=== PATIENT | male | born 1975 | race Caucasian/White ===

== ENCOUNTER 2018-09-25 20:25 | Inpatient (IN) | payer MEDICAID ==
[~2018-09-25] VITALS: Ht 180.3 cm; Wt 88.0 kg
[~2018-09-25 20:25] MED LIST: ASPI-41 PO; CARV-50 PO; DOCU100C40 PO; FURO40TA4 PO; HYDR-3972 PO; LISI-604 PO; PANT-47 PO; POTA10CA44 PO; TEMA15CA PO
--- NOTE | 2018-09-25 21:26 | NUR ---
SHIVERING EPISODE THURSDAY MORNING SITTING ON RIGHT LEG BENT UP. STARTED HAVING PAIN THEREAFTER. PT STATES, I JUST CAME FROM [facility] AFTER BEING ADMITTED FOR 2 DAYS. PT VERY UPSET. STATES, I JUST WALKED OUT. I PULLED MY IV AND LEFT BECAUSE THEY WERE NOT ACKNOWLEDGING THE PAIN I WAS HAVING IN MY RIGHT CALF DOWN TO MY FOOT.
[2018-09-25] MEDS ORDERED: vancomycin/NS 1 GM ADD-VANTAGE 250 ML IV ONE (22:05)
[2018-09-25] MEDS ORDERED: aspirin 81mg tab.chew PO ONE (22:05)
[2018-09-25] MEDS ORDERED: HYDROmorphone 1 mg/ml syringe IV ONE (22:05)
--- NOTE | 2018-09-25 22:08 | NUR ---
TO XRAY VIA WHEELCHAIR
--- NOTE | 2018-09-25 22:12 | NUR ---
BACK FROM XRAY
[2018-09-25 23:03] LABS: BASOPHILS % (AUTO) 0.2 % (0-1); EOSINOPHILS # (AUTO) 0.5 X10'3 (0-0.9); EOSINOPHILS % (AUTO) 3.2 % (0-6); HEMATOCRIT 27.9 % (42.0-52.0); HEMOGLOBIN 9.2 g/dl (14.0-17.9); LYMPHOCYTES # (AUTO) 0.9 X10'3 (1.1-4.8); LYMPHOCYTES % (AUTO) 6.1 % (21-51); MEAN CORPUSCULAR HEMOGLOBIN 30.5 PG (27.0-31.0); MEAN CORPUSCULAR VOLUME 92.3 FL (78-98); MEAN PLATELET VOLUME 7.9 FL (7.4-10.4); MONOCYTES # (AUTO) 1.1 X10'3 (0-0.9); MONOCYTES % (AUTO) 7.5 % (2-12); NEUTROPHILS # (AUTO) 11.8 X10'3 (1.8-7.7); PLATELET COUNT 251 X10'3 (140-440); RED BLOOD COUNT 3.02 X10'6 (4.70-6.10); RED CELL DISTRIBUTION WIDTH 15.4 % (11.5-14.5); WHITE BLOOD COUNT 14.2 X10'3 (4.5-11.0)
[2018-09-25] MEDS ORDERED: diltiazem 5mg/ml 5ml inj. IV ONE ×2 (23:05)
[2018-09-25] MEDS ORDERED: magnesium hydroxide 30ml (MOM) UD suspension PO PRN (23:15)
[2018-09-25] MEDS ORDERED: mag hydrox/Alum hydrox/simeth 30ml oral suspension PO PRN (23:15)
[2018-09-25] MEDS ORDERED: HYDROcodone/acetaminophen 5mg/325mg tablet PO PRN (23:15)
[2018-09-25] MEDS ORDERED: ondansetron/PF 4mg/2ml inj IV PRN (23:15)
[2018-09-25] MEDS ORDERED: acetaminophen 325mg tablet PO PRN ×2 (23:15)
[2018-09-25 23:17] LABS: ALANINE AMINOTRANSFERASE 19 U/L (12-78); ALBUMIN 2.6 G/DL (3.4-5.0); ALBUMIN/GLOBULIN RATIO 0.6 (1.1-1.5); ALKALINE PHOSPHATASE 115 IU/L (46-116); ANION GAP 11 (8-16); ASPARTATE AMINO TRANSFERASE 15 U/L (10-37); BILIRUBIN,TOTAL 0.8 MG/DL (0.1-1.0); BLOOD UREA NITROGEN 31 MG/DL (7-18); BUN/CREATININE RATIO 16.5 (5.4-32.0); CALCIUM 8.4 MG/DL (8.5-10.1); CHLORIDE 100 MMOL/L (99-107); CREATININE 1.88 MG/DL (0.60-1.10); GLUCOSE 107 MG/DL (70-104); POTASSIUM 4.8 MMOL/L (3.5-5.1); SODIUM 133 MMOL/L (135-145); TOTAL CARBON DIOXIDE 22.2 MMOL/L (24-32); TOTAL PROTEIN 7.2 G/DL (6.4-8.2); eGFR 39 ML/MIN
[2018-09-25] MEDS ORDERED: digoxin 250mcg/ml 2ml ampule IV ONE (23:25)
--- NOTE | 2018-09-25 23:25 | NUR ---
SBP 93. MD NOTIFIED. HOLD DILTIAZEM. ADMINISTER DIGOXIN
[2018-09-25 23:27] LABS: INR 1.1 INR; PARTIAL THROMBOPLASTIN TIME 29 SECONDS (22-32); PROTHROMBIN TIME 11.1 SECONDS (9.0-12.0)
[2018-09-26] MEDS ORDERED: piperacillin/tazo 4.5gm/100ml 100 ML IV SCH
[2018-09-26 00:14] LABS: CLARITY,URINE CLEAR (Clear); COLOR,URINE AMBER (Yellow); GLUCOSE, URINE NEGATIVE (Neg); KETONES,URINE NEGATIVE (Neg); LEUKOCYTE ESTERASE ,URINE NEGATIVE (Neg); NITRITES, URINE NEGATIVE (Neg); OCCULT BLOOD,URINE TRACE-LYSED (Neg); PH,URINE 5.5 (4.8-8.0); PROTEIN,URINE 30 mg/dl (Neg)
[2018-09-26 00:15] LABS: UA COLLECTION TYPE URINAL
[2018-09-26 00:33] LABS: BACTERIA,URINE NONE SEEN /HPF (Neg); FINE GRANULAR CAST 0-3 /LPF (NEGATIVE); MUCUS STRANDS FEW /LPF (Neg); RBC,URINE 0-2 /HPF (0-2); SQUAMOUS EPITHELIAL CELL,UR FEW /LPF (FEW); WBC,URINE 0-4 /HPF (0-4)
[2018-09-26 03:13] VITALS: BP 108/75
[2018-09-26 03:13] LABS: URINE AMPHETAMINE SCREEN NEGATIVE (Neg); URINE BARBITUATE SCREEN NEGATIVE (Neg); URINE BENZODIAZEPINES SCREEN NEGATIVE (Neg); URINE CANNABINOID SCREEN POSITIVE (Neg); URINE COCAINE SCREEN NEGATIVE (Neg); URINE METHADONE SCREEN NEGATIVE (Neg); URINE OPIATE SCREEN POSITIVE (Neg); URINE PHENCYCLIDINE SCREEN NEGATIVE (Neg)
--- NOTE | 2018-09-26 05:17 | NUR ---
PT STATED FRUSTRATION WITH CONTINUING PAIN IN RIGHT KNEE, AND SUGGESTED HE MIGHT LEAVE [facility] AND GO TO [facility] FOR ASSESSMENT AND TREATMENT AT [facility] ER. HE STATED THAT HE PLANNED NOT TO TELL THEM ABOUT HIS ENDOCARDITIS IN ORDER FOR THEM FOCUS ON THE PAIN IN HIS LEG. PT WAS INFORMED OF THE IMPORTANCE OF CONTINUING HIS ANTIBIOTICS FOR ENDOCARDITIS AND ALSO THAT HE HAS A VASCULAR STUDY ORDERED AND WILL BE COMPLETED WHEN THE CLIENT OPERATIONS MANAGER ARRIVES IN THE AM. IT WAS RECOMMENDED PT CALL [facility] AND FIND OUT ABOUT THE POSSIBILITY OF HAVING A VASCULAR STUDY BEFORE ONE IS AVAILABLE IN [facility] ER. CHARGE NURSE NOTIFIED.
[2018-09-26] MEDS ORDERED: pantoprazole 40mg Tablet.DR PO SCH (07:30)
[2018-09-26] MEDS ORDERED: docusate sod 100mg capsule PO SCH (08:00)
[2018-09-26] MEDS ORDERED: aspirin 325mg tablet, delayed-release (Ecotrin) PO SCH (08:00)
[2018-09-26] MEDS ORDERED: furosemide 40mg tablet PO SCH (08:00)
[2018-09-26] MEDS ORDERED: carVEDilol 12.5mg tablet PO SCH (08:00)
[2018-09-26] MEDS ORDERED: vancomycin/NS 1 GM ADD-VANTAGE 250 ML IV SCH (08:00)
[2018-09-26] MEDS ORDERED: potassium chloride 10mEq CAPSULE.SA PO SCH (08:00)
[2018-09-26] MEDS ORDERED: lisinopril 5mg tablet PO SCH (08:00)
[2018-09-26] MEDS ORDERED: Melatonin 3mg tablet PO SCH (21:00)
== END 2018-09-26 05:32 | disposition left against medical advice (07) | DRG 200 ==
LOC: ER 20:26 → ED HOLD 23:15
PROVIDERS: ADMIT Hospitalist; ATTEND Hospitalist
DX: I38 Endocarditis, valve unspecified (principal); N17.9 Acute kidney failure, unspecified; I42.9 Cardiomyopathy, unspecified; I48.91 Unspecified atrial fibrillation; D64.9 Anemia, unspecified; E11.9 Type 2 diabetes mellitus without complications; I10 Essential (primary) hypertension; J44.9 Chronic obstructive pulmonary disease, unspecified; F15.90 Other stimulant use, unspecified, uncomplicated; F12.90 Cannabis use, unspecified, uncomplicated; Z87.891 Personal history of nicotine dependence; Z56.0 Unemployment, unspecified; Z83.3 Family history of diabetes mellitus; Z82.5 Family history of asthma and other chronic lower respiratory diseases; Z95.1 Presence of aortocoronary bypass graft; Z95.0 Presence of cardiac pacemaker; Z95.2 Presence of prosthetic heart valve; Z91.19 Patient's noncompliance with other medical treatment and regimen
CPT/HCPCS: 36415; 71045; 80053; 80305; 81001; 81003; 83605; 83735; 84145; 85025; 85610; 85730; 87040; 93005; 93306; 96365; 96375; 99291; G0378; J1160; J1170; J2543; J3370; J3490

== ENCOUNTER 2020-08-20 13:33 | Inpatient (IN) | payer MEDICAID ==
[~2020-08-20] VITALS: Ht 180.3 cm; Wt 110.0 kg
[2020-08-20 14:12] LABS: BASOPHILS # (AUTO) 0.1 X10'3 (0-0.2); BASOPHILS % (AUTO) 0.9 % (0-1); EOSINOPHILS # (AUTO) 0.3 X10'3 (0-0.9); EOSINOPHILS % (AUTO) 2.5 % (0-6); HEMATOCRIT 42.1 % (42.0-52.0); HEMOGLOBIN 14.3 g/dl (14.0-17.9); LYMPHOCYTES # (AUTO) 0.9 X10'3 (1.1-4.8); LYMPHOCYTES % (AUTO) 8.5 % (21-51); MEAN CORPUSCULAR HEMOGLOBIN 33.3 PG (27.0-31.0); MEAN CORPUSCULAR VOLUME 97.7 FL (78-98); MEAN PLATELET VOLUME 8.8 FL (7.4-10.4); MONOCYTES # (AUTO) 0.9 X10'3 (0-0.9); MONOCYTES % (AUTO) 8.2 % (2-12); NEUTROPHILS # (AUTO) 8.5 X10'3 (1.8-7.7); NEUTROPHILS % (AUTO) 79.9 % (42-75); PLATELET COUNT 175 X10'3 (140-440); RED BLOOD COUNT 4.31 X10'6 (4.70-6.10); RED CELL DISTRIBUTION WIDTH 13.3 % (11.5-14.5); WHITE BLOOD COUNT 10.7 X10'3 (4.5-11.0)
[2020-08-20 14:21] LABS: ALANINE AMINOTRANSFERASE 44 U/L (12-78); ALBUMIN 3.7 G/DL (3.4-5.0); ANION GAP 6 (8-16); ASPARTATE AMINO TRANSFERASE 28 U/L (10-37); BLOOD UREA NITROGEN 35 MG/DL (7-18); BUN/CREATININE RATIO 16.3 (5.4-32.0); CHLORIDE 105 MMOL/L (99-107); CREATININE 2.15 MG/DL (0.60-1.10); GLUCOSE 177 MG/DL (70-104); POTASSIUM 3.6 MMOL/L (3.5-5.1); SODIUM 139 MMOL/L (135-145); eGFR 33 ML/MIN
[2020-08-20 14:39] LABS: ALKALINE PHOSPHATASE 110 IU/L (46-116); BILIRUBIN,TOTAL 0.9 MG/DL (0.1-1.0); CALCIUM 8.8 MG/DL (8.5-10.1); TOTAL PROTEIN 7.5 G/DL (6.4-8.2)
[2020-08-20] MEDS ORDERED: iohexol 350MG/ML 100ml bottle IV ONE (14:46)
--- NOTE | 2020-08-20 15:10 | NUR ---
UPDATED DR. DOWD ON PTS VSS, PT CURRENT HR 134, NO NEW ORDERS.
[2020-08-20] MEDS ORDERED: normal saline 1000ML IV soln IVB ONE (15:15)
[2020-08-20] MEDS ORDERED: diltiazem 5mg/ml 5ml inj. IV ONE (16:50)
[2020-08-20] MEDS ORDERED: POTA8CAP20 PO (17:23)
[2020-08-20] MEDS ORDERED: ATOR40TA72 PO (17:23)
[2020-08-20] MEDS ORDERED: CARV25TA2 PO (17:23)
[2020-08-20] MEDS ORDERED: FURO40TA4 PO (17:23)
[2020-08-20] MEDS ORDERED: HYDR-4069 PO (17:25)
[2020-08-20] MEDS ORDERED: morphine 2 MG/ML inj. syringe IV PRN ×2 (17:30)
[2020-08-20] MEDS ORDERED: acetaminophen 325mg tablet PO PRN ×2 (17:30)
[2020-08-20] MEDS ORDERED: mag hydrox/Alum hydrox/simeth 30ml oral suspension PO PRN (17:30)
[2020-08-20] MEDS ORDERED: HYDROcodone/acetaminophen 5mg/325mg tablet PO PRN (17:30)
[2020-08-20] MEDS ORDERED: magnesium hydroxide 30ml (MOM) UD suspension PO PRN (17:30)
[2020-08-20] MEDS ORDERED: ondansetron/PF 4mg/2ml inj IV PRN (17:30)
[2020-08-20] MEDS ORDERED: HYDROcodone/acetaminophen 10/325mg tab PO PRN (17:30)
[2020-08-20] MEDS: diltiazem 30mg tablet PO SCH (19:44)
[2020-08-20] MEDS: furosemide 40mg/4ml inj IV SCH (19:45)
[2020-08-20] MEDS: atorvastatin 20mg tablet PO SCH (22:53)
--- NOTE | 2020-08-20 23:11 | NUR ---
I have received report from Genia DENISE and had the opportunity to ask questions, awaiting patients arrival from the ER.
--- NOTE | 2020-08-20 23:30 | NUR ---
Patient has arrived from ER via gurney with Genia DENISE. Patient is alert and orientted with no signs of distress. Skin check and MRSA swab obtained. Vitals are as follows bp 142/80, o2 96% room air, Heart rate 60, temp 98, resp 16, pain 0. Call light is within reach, SRx2, frequent rounding, will continue to monitor.
[2020-08-21 02:00] VITALS: BP 124/91
[2020-08-21] MEDS: diltiazem 30mg tablet PO SCH (02:14)
[2020-08-21 02:41] LABS: BASOPHILS # (AUTO) 0.1 X10'3 (0-0.2); BASOPHILS % (AUTO) 0.9 % (0-1); EOSINOPHILS # (AUTO) 0.3 X10'3 (0-0.9); EOSINOPHILS % (AUTO) 3.3 % (0-6); HEMATOCRIT 38.4 % (42.0-52.0); LYMPHOCYTES # (AUTO) 0.9 X10'3 (1.1-4.8); LYMPHOCYTES % (AUTO) 9.4 % (21-51); MEAN CORPUSCULAR HEMOGLOBIN 32.7 PG (27.0-31.0); MEAN CORPUSCULAR HGB CONC 33.8 g/dL (33.0-36.5); MEAN CORPUSCULAR VOLUME 96.9 FL (78-98); MONOCYTES # (AUTO) 1.2 X10'3 (0-0.9); MONOCYTES % (AUTO) 11.9 % (2-12); NEUTROPHILS # (AUTO) 7.4 X10'3 (1.8-7.7); NEUTROPHILS % (AUTO) 74.5 % (42-75); PLATELET COUNT 162 X10'3 (140-440); RED BLOOD COUNT 3.96 X10'6 (4.70-6.10); RED CELL DISTRIBUTION WIDTH 13.6 % (11.5-14.5); WHITE BLOOD COUNT 9.9 X10'3 (4.5-11.0)
[2020-08-21 02:55] LABS: ALBUMIN 3.5 G/DL (3.4-5.0); ANION GAP 7 (8-16); BLOOD UREA NITROGEN 33 MG/DL (7-18); BUN/CREATININE RATIO 16.4 (5.4-32.0); CALCIUM 8.7 MG/DL (8.5-10.1); CHLORIDE 105 MMOL/L (99-107); CREATININE 2.01 MG/DL (0.60-1.10); GLUCOSE 115 MG/DL (70-104); POTASSIUM 3.4 MMOL/L (3.5-5.1); SODIUM 140 MMOL/L (135-145); TOTAL CARBON DIOXIDE 28.3 MMOL/L (24-32); eGFR 36 ML/MIN
--- NOTE | 2020-08-21 06:33 | NUR ---
Patient in room PCU 3024. I have received report from Halle DENISE and had the opportunity to ask questions and assume patient care.
--- NOTE | 2020-08-21 06:35 | NUR ---
Problems reprioritized. Patient report given, questions answered & plan of care reviewed with Lauren DENISE.
[2020-08-21 07:00] VITALS: BP 118/85
[2020-08-21] MEDS ORDERED: enoxaparin 40mg/0.4ml syringe SUBCUT SCH (08:00)
[2020-08-21] MEDS: diltiazem CD 120mg capsule (once-daily) PO SCH (08:11)
[2020-08-21] MEDS: lisinopril 2.5mg tablet PO SCH (08:11)
[2020-08-21] MEDS: potassium chloride 8mEq ER tablet PO SCH (08:12)
[2020-08-21] MEDS: apixaban 5mg tablet PO SCH ×2 (08:12→20:26)
[2020-08-21] MEDS: furosemide 40mg/4ml inj IV SCH ×2 (08:12→20:26)
[2020-08-21] MEDS: spironolactone 25 MG tablet PO SCH (08:12)
[2020-08-21] MEDS: carVEDilol 3.125mg tablet PO SCH ×2 (08:12→20:26)
[2020-08-21 11:00] VITALS: BP 112/62
--- NOTE | 2020-08-21 11:58 | NUR ---
Page sent to Dr. Martinez: PAGER ID: [phone] MESSAGE: [phone] Francis Wheatley: K is 3.4, can I order replacement protocol? Thanks, Lauren [phone]
[2020-08-21 15:00] VITALS: BP 114/81
--- NOTE | 2020-08-21 15:12 | NUR ---
Page sent to Dr. Martinez: PAGER ID: [phone] MESSAGE: [phone] Francis Wheatley: Just checking back in, K is 3.4. Can I order replacement protocol? Thanks, Lauren [phone]
--- NOTE | 2020-08-21 18:00 | NUR ---
Patient in room PCU 3024. I have received report from Lauren DENISE and had the opportunity to ask questions and assume patient care.
--- NOTE | 2020-08-21 18:38 | NUR ---
Problems reprioritized. Patient report given, questions answered & plan of care reviewed with Alex DENISE.
[2020-08-21] MEDS: atorvastatin 20mg tablet PO SCH (20:26)
[2020-08-21 22:00] VITALS: BP 113/59
[2020-08-22] MEDS ORDERED: potassium Cl 20 mEq SR tablet PO PRN ×2 (01:40)
[2020-08-22] MEDS ORDERED: potassium Cl 40MEQ/1/2NS 520ml 520 ML IV PRN (01:40)
[2020-08-22 02:00] VITALS: BP 120/77
[2020-08-22 06:08] LABS: BASOPHILS # (AUTO) 0.1 X10'3 (0-0.2); BASOPHILS % (AUTO) 0.6 % (0-1); EOSINOPHILS # (AUTO) 0.5 X10'3 (0-0.9); EOSINOPHILS % (AUTO) 6.2 % (0-6); HEMATOCRIT 41.4 % (42.0-52.0); LYMPHOCYTES # (AUTO) 1.2 X10'3 (1.1-4.8); LYMPHOCYTES % (AUTO) 15.2 % (21-51); MEAN CORPUSCULAR HGB CONC 33.9 g/dL (33.0-36.5); MEAN CORPUSCULAR VOLUME 97.3 FL (78-98); MEAN PLATELET VOLUME 8.9 FL (7.4-10.4); MONOCYTES # (AUTO) 1.1 X10'3 (0-0.9); NEUTROPHILS # (AUTO) 5.1 X10'3 (1.8-7.7); PLATELET COUNT 171 X10'3 (140-440); RED BLOOD COUNT 4.25 X10'6 (4.70-6.10); RED CELL DISTRIBUTION WIDTH 13.2 % (11.5-14.5); WHITE BLOOD COUNT 7.9 X10'3 (4.5-11.0)
[2020-08-22 06:14] LABS: ALBUMIN 3.2 G/DL (3.4-5.0); ANION GAP 9 (8-16); BLOOD UREA NITROGEN 36 MG/DL (7-18); BUN/CREATININE RATIO 20.7 (5.4-32.0); CALCIUM 9.3 MG/DL (8.5-10.1); CHLORIDE 105 MMOL/L (99-107); CREATININE 1.74 MG/DL (0.60-1.10); GLUCOSE 102 MG/DL (70-104); POTASSIUM 3.7 MMOL/L (3.5-5.1); SODIUM 142 MMOL/L (135-145); TOTAL CARBON DIOXIDE 27.9 MMOL/L (24-32); eGFR 42 ML/MIN
--- NOTE | 2020-08-22 06:31 | NUR ---
Patient in room PCU 3024. I have received report from CAMELIA Johnson and had the opportunity to ask questions and assume patient care.
--- NOTE | 2020-08-22 06:33 | NUR ---
Problems reprioritized. Patient report given, questions answered & plan of care reviewed with Albert DENISE.
[2020-08-22 07:00] VITALS: BP 120/72
[2020-08-22] MEDS: potassium chloride 8mEq ER tablet PO SCH (07:55)
[2020-08-22] MEDS: spironolactone 25 MG tablet PO SCH (07:55)
[2020-08-22] MEDS: diltiazem CD 120mg capsule (once-daily) PO SCH (07:55)
[2020-08-22 07:56] VITALS: BP_SYST 120
[2020-08-22] MEDS: lisinopril 2.5mg tablet PO SCH (07:56)
[2020-08-22] MEDS: furosemide 40mg/4ml inj IV SCH (07:56)
[2020-08-22] MEDS: apixaban 5mg tablet PO SCH (07:56)
[2020-08-22] MEDS: carVEDilol 3.125mg tablet PO SCH (07:56)
[2020-08-22] MEDS ORDERED: SPIR25TA PO (09:04)
[2020-08-22] MEDS ORDERED: COR3.125T PO (09:04)
[2020-08-22] MEDS ORDERED: CARCD120C PO (09:04)
[2020-08-22] MEDS ORDERED: LISI2.5T2 PO (09:04)
[2020-08-22] MEDS ORDERED: FURO40TA4 PO (09:04)
--- NOTE | 2020-08-22 09:40 | NUR ---
Patient requesting that this RN help set up follow up appointments for him. Attempted to call [facility] where patient states his PCP Renetta Montenegro is located, left message and awaiting phone back. Dr. La office called and appointment is Addendum: 08/22/20 at 0946 by Albert Boyd RN Spoke to Yesica at Dr. Watson office, she explains that medical records for patient will need to be received before setting up follow up appointment for patient. Let patient know. Info for Dr. La office given to patient.
--- NOTE | 2020-08-22 10:57 | NUR ---
Let patient know Kechi Dominick has not returned phone call. Patient states he would like to DC and set up his own appointment at this time. Kechi Dominick info given to patient.
[2020-08-22] MEDS ORDERED: APIX5TAB3 PO (11:03)
--- NOTE | 2020-08-22 11:06 | NUR ---
[facility] returned phone call follow up appointment will be for Sep 27 at 0920.
--- NOTE | 2020-08-22 11:25 | NUR ---
Patient is alert and oriented with no s/s of acute distress and no complaints. Discussed with patient discharge instructions, new prescriptions, changes to home meds and also follow up appointment. Patient verbalizes understanding of teaching and stated he had no questions. Patient dc'd with all personal belongings and patient stated he is his own transport home as he has his vehicle in the parking lot.
== END 2020-08-22 11:29 | disposition home or self-care (01) | DRG 206 ==
LOC: ER 13:34 → ED HOLD 17:28 → PCU 3S 23:15
PROVIDERS: ADMIT Internal Medicine; ATTEND Internal Medicine
PROC: 4B02XSZ Measurement of Cardiac Pacemaker, External Approach (ICD-10-PCS; principal; 2020-08-22)
DX: T82.119A Breakdown (mechanical) of unspecified cardiac electronic device, initial encounter (principal); I13.0 Hypertensive heart and chronic kidney disease with heart failure and stage 1 through stage 4 chronic kidney disease, or unspecified chronic kidney disease; E11.22 Type 2 diabetes mellitus with diabetic chronic kidney disease; F15.10 Other stimulant abuse, uncomplicated; F17.200 Nicotine dependence, unspecified, uncomplicated; I25.10 Atherosclerotic heart disease of native coronary artery without angina pectoris; I42.7 Cardiomyopathy due to drug and external agent; I48.0 Paroxysmal atrial fibrillation; I50.23 Acute on chronic systolic (congestive) heart failure; J44.9 Chronic obstructive pulmonary disease, unspecified; N17.9 Acute kidney failure, unspecified; Z95.0 Presence of cardiac pacemaker; N18.30 Chronic kidney disease, stage 3 unspecified; Y71.2 Prosthetic and other implants, materials and accessory cardiovascular devices associated with adverse incidents; Z79.01 Long term (current) use of anticoagulants; Z79.899 Other long term (current) drug therapy; Z82.5 Family history of asthma and other chronic lower respiratory diseases; Z83.3 Family history of diabetes mellitus; Z86.79 Personal history of other diseases of the circulatory system; Z95.1 Presence of aortocoronary bypass graft; Z95.2 Presence of prosthetic heart valve
CPT/HCPCS: 36415; 71045; 80048; 80053; 83880; 84484; 85025; 87081; 93005; 93306; 93308; 96374; 99285; G0378; J1940; J3490; J7030; Q9967

== ENCOUNTER 2024-01-02 15:18 | Inpatient (IN) | payer MEDICAID, OTHER ==
[~2024-01-02] VITALS: Ht 172.7 cm; Wt 81.0 kg
[~2024-01-02 15:18] MED LIST changes: +APIX5TAB3 PO; -ASPI-41 PO; +ATOR40TA72 PO; +CARCD120C PO; -CARV-50 PO; +COR3.125T PO; -DOCU100C40 PO; -HYDR-3972 PO; -LISI-604 PO; +LISI2.5T14 PO; -PANT-47 PO; -POTA10CA44 PO; +POTA8CAP20 PO; +SPIR25TA PO; -TEMA15CA PO
[2024-01-02] MEDS ORDERED: iohexol 350MG/ML 100ml bottle IV ONE (15:23)
[2024-01-02 15:49] LABS: BASOPHILS # (AUTO) 0.1 X10'3 (0-0.2); BASOPHILS % (AUTO) 1.2 % (0-1); EOSINOPHILS # (AUTO) 0.4 X10'3 (0-0.9); EOSINOPHILS % (AUTO) 5.7 % (0-6); HEMATOCRIT 41.6 % (42.0-52.0); HEMOGLOBIN 14.1 g/dl (14.0-17.9); LYMPHOCYTES # (AUTO) 0.9 X10'3 (1.1-4.8); MEAN CORPUSCULAR HEMOGLOBIN 32.5 PG (27.0-31.0); MEAN CORPUSCULAR HGB CONC 33.9 g/dL (33.0-36.5); MEAN PLATELET VOLUME 8.8 FL (7.4-10.4); MONOCYTES # (AUTO) 0.7 X10'3 (0-0.9); MONOCYTES % (AUTO) 10.7 % (2-12); NEUTROPHILS # (AUTO) 4.3 X10'3 (1.8-7.7); NEUTROPHILS % (AUTO) 67.4 % (42-75); PLATELET COUNT 174 X10'3 (140-440); RED BLOOD COUNT 4.34 X10'6 (4.70-6.10); RED CELL DISTRIBUTION WIDTH 13.3 % (11.5-14.5); WHITE BLOOD COUNT 6.3 X10'3 (4.5-11.0)
[2024-01-02 16:02] LABS: APTT 28 SECONDS (22-32); PROTHROMBIN TIME 10.9 SECONDS (9.0-12.0)
[2024-01-02] MEDS: clopidogrel 300mg tablet PO ONE (16:05)
[2024-01-02] MEDS: aspirin 81mg tab.chew PO ONE (16:06)
[2024-01-02 16:09] LABS: ALANINE AMINOTRANSFERASE 24 U/L (12-78); ALBUMIN 3.1 G/DL (3.4-5.0); ALBUMIN/GLOBULIN RATIO 0.8 (1.1-1.5); ALKALINE PHOSPHATASE 82 IU/L (46-116); ANION GAP 8 (8-16); ASPARTATE AMINO TRANSFERASE 16 U/L (10-37); BILIRUBIN,TOTAL 0.3 MG/DL (0.1-1.0); BLOOD UREA NITROGEN 34 MG/DL (7-18); BUN/CREATININE RATIO 20.7 (10.0-20.0); CALCIUM 9.4 MG/DL (8.5-10.1); CHLORIDE 105 MMOL/L (99-107); CREATININE 1.64 MG/DL (0.60-1.10); GLUCOSE 143 MG/DL (70-104); POTASSIUM 4.1 MMOL/L (3.5-5.1); SODIUM 139 MMOL/L (135-145); TOTAL CARBON DIOXIDE 26.3 MMOL/L (24-32); TOTAL PROTEIN 6.9 G/DL (6.4-8.2); eCRCL 53 ML/MIN; eGFR 45 ML/MIN
[2024-01-02 16:11] LABS: PRO BRAIN NATRIURETIC PEPTIDE 5901 PG/ML (0-125)
[2024-01-02 16:27] LABS: BILIRUBIN,URINE NEGATIVE (Neg); CLARITY,URINE CLEAR (Clear); COLOR,URINE YELLOW (Yellow); GLUCOSE, URINE NEGATIVE (Neg); KETONES,URINE NEGATIVE (Neg); LEUKOCYTE ESTERASE ,URINE NEGATIVE (Neg); NITRITES, URINE NEGATIVE (Neg); OCCULT BLOOD,URINE NEGATIVE (Neg); PROTEIN,URINE NEGATIVE (Neg); UROBILINOGEN,URINE 0.2 E.U/dL (0.2-1.0)
[2024-01-02 16:37] LABS: UA COLLECTION TYPE CLN CATCH MIDSTREAM
[2024-01-02] MEDS: atorvastatin 20mg tablet PO SCH (16:41)
[2024-01-02] MEDS ORDERED: ondansetron/PF 4mg/2ml inj IV PRN (16:45)
[2024-01-02] MEDS ORDERED: potassium Cl 40MEQ/1/2NS 520ml 520 ML IV PRN (16:45)
[2024-01-02] MEDS ORDERED: magnesium 4gm in 100ml NS 100 ML IV PRN (16:45)
[2024-01-02] MEDS ORDERED: acetaminophen 325mg tablet PO PRN (16:45)
[2024-01-02] MEDS ORDERED: potassium Cl 20 mEq SR tablet PO PRN ×2 (16:45)
[2024-01-02] MEDS ORDERED: magnesium 2GM in 50ml NS 50 ML IV PRN (16:45)
[2024-01-02] MEDS ORDERED: magnesium Cl slow-release 64mg tablet PO PRN (16:45)
[2024-01-02] MEDS ORDERED: FURO40TA4 PO (16:48)
[2024-01-02] MEDS ORDERED: APIX5TAB3 PO (16:49)
[2024-01-02 16:52] LABS: URINE AMPHETAMINE SCREEN POSITIVE (Neg); URINE BARBITUATE SCREEN NEGATIVE (Neg); URINE BENZODIAZEPINES SCREEN NEGATIVE (Neg); URINE CANNABINOID SCREEN POSITIVE (Neg); URINE COCAINE SCREEN NEGATIVE (Neg); URINE METHADONE SCREEN NEGATIVE (Neg); URINE OPIATE SCREEN NEGATIVE (Neg); URINE PHENCYCLIDINE SCREEN NEGATIVE (Neg)
[2024-01-02] MEDS: normal saline 1000ml 1,000 ML IV SCH (17:13)
[2024-01-02] MEDS: nicotine 14mg patch - 24hr TD SCH (17:48)
[2024-01-02 18:45] VITALS: BP 140/94; PULSE 71; RESP 4; TEMP 97.9; O2SAT 98
[2024-01-02] MEDS: acetaminophen 325mg tablet PO PRN (21:30)
[2024-01-02] MEDS: enoxaparin 40mg/0.4ml syringe SQ SCH (21:30)
[2024-01-02 22:00] VITALS: BP 125/55; PULSE 71; RESP 16; RESP 18; TEMP 97.9; O2SAT 98
[2024-01-02 23:09] VITALS: BP 140/94; PULSE 71; RESP 14; TEMP 97.9; O2SAT 98
[2024-01-02 23:30] VITALS: BP 125/55; PULSE 71; RESP 18; TEMP 97.9; O2SAT 98
[2024-01-03] VITALS (8 sets, daily range): BP systolic 145–184; BP diastolic 91–112; PULSE 68–97; RESP 16–18; TEMP 97.7–98.4; O2SAT 94–100
[2024-01-03] MEDS: atorvastatin 20mg tablet PO SCH (07:51)
[2024-01-03] MEDS: clopidogrel 75mg tablet PO SCH (07:51)
[2024-01-03] MEDS: aspirin 81mg, enteric-coated 1 TAB TABLET.DR PO SCH (07:52)
[2024-01-03] MEDS ORDERED: enoxaparin 40mg/0.4ml syringe SQ SCH (08:00)
[2024-01-03] MEDS ORDERED: ATOR40TA72 PO (14:49)
[2024-01-03] MEDS ORDERED: APIX5TAB3 PO (14:49)
[2024-01-03] MEDS ORDERED: NICO-631 TD (14:49)
[2024-01-03] MEDS ORDERED: LISI10TA27 PO (14:49)
[2024-01-03] MEDS ORDERED: COR3.125T PO (14:49)
[2024-01-03] MEDS ORDERED: carVEDilol 3.125mg tablet PO SCH (20:00)
[2024-01-04] MEDS ORDERED: atorvastatin 20mg tablet PO SCH (21:00)
== END 2024-01-03 15:47 | disposition home or self-care (01) | DRG 69 ==
LOC: ER 15:19 → ED HOLD 16:47 → ORTHO 4S 19:15
PROVIDERS: ADMIT Internal Medicine; ATTEND Internal Medicine
PROC: B3251ZZ Computerized Tomography (CT Scan) of Bilateral Common Carotid Arteries using Low Osmolar Contrast (ICD-10-PCS; principal; 2024-01-02)
PROC: B32G1ZZ Computerized Tomography (CT Scan) of Bilateral Vertebral Arteries using Low Osmolar Contrast (ICD-10-PCS; 2024-01-02)
PROC: B32R1ZZ Computerized Tomography (CT Scan) of Intracranial Arteries using Low Osmolar Contrast (ICD-10-PCS; 2024-01-02)
DX: G45.9 Transient cerebral ischemic attack, unspecified (principal); I50.23 Acute on chronic systolic (congestive) heart failure; I48.20 Chronic atrial fibrillation, unspecified; I13.0 Hypertensive heart and chronic kidney disease with heart failure and stage 1 through stage 4 chronic kidney disease, or unspecified chronic kidney disease; J44.9 Chronic obstructive pulmonary disease, unspecified; I25.10 Atherosclerotic heart disease of native coronary artery without angina pectoris; E11.22 Type 2 diabetes mellitus with diabetic chronic kidney disease; F17.290 Nicotine dependence, other tobacco product, uncomplicated; N18.9 Chronic kidney disease, unspecified; R79.89 Other specified abnormal findings of blood chemistry; F12.10 Cannabis abuse, uncomplicated; F15.10 Other stimulant abuse, uncomplicated; I27.20 Pulmonary hypertension, unspecified; Z79.01 Long term (current) use of anticoagulants; Z95.0 Presence of cardiac pacemaker; Z95.1 Presence of aortocoronary bypass graft; Z95.2 Presence of prosthetic heart valve; Z82.5 Family history of asthma and other chronic lower respiratory diseases; Z83.3 Family history of diabetes mellitus; Z56.0 Unemployment, unspecified
CPT/HCPCS: 36415; 70450; 70496; 70498; 71045; 80053; 80305; 81003; 82948; 83880; 84484; 85025; 85610; 85730; 86885; 86900; 86901; 87081; 93005; 93306; G0378; J1650; J3490; J7030; Q9967

== ENCOUNTER 2024-08-29 09:10 | Inpatient (IN) | payer MEDICAID ==
[~2024-08-29] VITALS: Ht 180.3 cm; Wt 97.6 kg
[~2024-08-29 09:10] MED LIST changes: -CARCD120C PO; +CARV3.1232 PO; -COR3.125T PO; -FURO40TA4 PO; +LISI10TA27 PO; -LISI2.5T14 PO; +NICO-631 TD; -POTA8CAP20 PO; -SPIR25TA PO
[2024-08-29 09:26] LABS: BASOPHILS # (AUTO) 0.1 X10'3 (0-0.2); BASOPHILS % (AUTO) 0.9 % (0-1); EOSINOPHILS # (AUTO) 0.3 X10'3 (0-0.9); EOSINOPHILS % (AUTO) 4.3 % (0-6); HEMATOCRIT 43.1 % (42.0-52.0); HEMOGLOBIN 14.6 g/dl (14.0-17.9); LYMPHOCYTES # (AUTO) 0.8 X10'3 (1.1-4.8); LYMPHOCYTES % (AUTO) 10.4 % (21-51); MEAN CORPUSCULAR HEMOGLOBIN 32.7 PG (27.0-31.0); MEAN CORPUSCULAR HGB CONC 33.8 g/dL (33.0-36.5); MEAN CORPUSCULAR VOLUME 96.7 FL (78-98); MONOCYTES # (AUTO) 0.8 X10'3 (0-0.9); MONOCYTES % (AUTO) 10.6 % (2-12); NEUTROPHILS # (AUTO) 5.7 X10'3 (1.8-7.7); NEUTROPHILS % (AUTO) 73.8 % (42-75); PLATELET COUNT 205 X10'3 (140-440); RED BLOOD COUNT 4.46 X10'6 (4.70-6.10); RED CELL DISTRIBUTION WIDTH 13.6 % (11.5-14.5); WHITE BLOOD COUNT 7.7 X10'3 (4.5-11.0)
[2024-08-29 10:22] LABS: ALANINE AMINOTRANSFERASE 23 U/L (12-78); ALBUMIN 3.6 G/DL (3.4-5.0); ALBUMIN/GLOBULIN RATIO 0.9 (1.1-1.5); ALKALINE PHOSPHATASE 100 IU/L (46-116); ANION GAP 3 (8-16); ASPARTATE AMINO TRANSFERASE 22 U/L (10-37); BILIRUBIN,TOTAL 0.4 MG/DL (0.1-1.0); BLOOD UREA NITROGEN 27 MG/DL (7-18); BUN/CREATININE RATIO 16.1 (10.0-20.0); CALCIUM 9.7 MG/DL (8.5-10.1); CHLORIDE 104 MMOL/L (99-107); CREATININE 1.68 MG/DL (0.60-1.10); POTASSIUM 4.4 MMOL/L (3.5-5.1); SODIUM 140 MMOL/L (135-145); TOTAL CARBON DIOXIDE 32.9 MMOL/L (24-32); TOTAL PROTEIN 7.8 G/DL (6.4-8.2); eCRCL 56 ML/MIN; eGFR 43 ML/MIN
[2024-08-29 10:30] LABS: PRO BRAIN NATRIURETIC PEPTIDE 10844 PG/ML (0-125)
[2024-08-29 10:34] LABS: GLUCOSE 110 MG/DL (70-104)
[2024-08-29] MEDS: carVEDilol 3.125mg tablet PO ONE (12:09)
[2024-08-29] MEDS: aspirin 81mg tab.chew PO ONE (12:09)
[2024-08-29] MEDS: furosemide 10 MG/1 ML 10ml inj IV ONE (12:10)
[2024-08-29] MEDS ORDERED: HYDROcodone/acetaminophen 10/325mg tab PO PRN (12:25)
[2024-08-29] MEDS ORDERED: ondansetron/PF 4mg/2ml inj IV PRN (12:25)
[2024-08-29] MEDS ORDERED: mag hydrox/Alum hydrox/simeth 30ml oral suspension PO PRN (12:25)
[2024-08-29] MEDS ORDERED: acetaminophen 325mg tablet PO PRN (12:25)
[2024-08-29] MEDS ORDERED: morphine 2 MG/ML inj. syringe IV PRN ×2 (12:25)
[2024-08-29] MEDS ORDERED: magnesium hydroxide 30ml (MOM) UD suspension PO PRN (12:25)
[2024-08-29] MEDS ORDERED: HYDROcodone/acetaminophen 5mg/325mg tablet PO PRN (12:25)
[2024-08-29 16:10] VITALS: BP 155/89; PULSE 61; RESP 11; TEMP 97.5; O2SAT 96
[2024-08-29 16:55] VITALS: RESP 17; O2SAT 96
[2024-08-29 17:26] VITALS: BP 145/74; PULSE 60; RESP 12; TEMP 97.4; O2SAT 96
[2024-08-29 18:00] VITALS: BP 146/96; PULSE 82; RESP 14; TEMP 97.9; O2SAT 95
[2024-08-29] MEDS: apixaban 5mg tablet PO SCH (19:18)
[2024-08-29] MEDS: docusate sod 100mg capsule PO SCH (19:18)
[2024-08-29] MEDS: furosemide 40mg/4ml inj IV SCH (19:25)
[2024-08-29] MEDS: acetaminophen 325mg tablet PO PRN (19:37)
[2024-08-29 20:00] VITALS: RESP 14; O2SAT 93
[2024-08-29] MEDS: atorvastatin 20mg tablet PO SCH (20:53)
[2024-08-29] MEDS: carVEDilol 3.125mg tablet PO SCH (20:53)
[2024-08-29 22:00] VITALS: BP 114/83; PULSE 77; RESP 16; TEMP 98.8; O2SAT 96
[2024-08-30] VITALS (8 sets, daily range): BP systolic 100–148; BP diastolic 69–94; PULSE 79–89; RESP 10–18; TEMP 97.4–98.4; O2SAT 92–100
[2024-08-30 07:39] LABS: BASOPHILS # (AUTO) 0.1 X10'3 (0-0.2); BASOPHILS % (AUTO) 0.7 % (0-1); EOSINOPHILS # (AUTO) 0.6 X10'3 (0-0.9); EOSINOPHILS % (AUTO) 6.6 % (0-6); HEMATOCRIT 45.6 % (42.0-52.0); HEMOGLOBIN 15.6 g/dl (14.0-17.9); LYMPHOCYTES # (AUTO) 1.1 X10'3 (1.1-4.8); LYMPHOCYTES % (AUTO) 12.6 % (21-51); MEAN CORPUSCULAR HEMOGLOBIN 32.6 PG (27.0-31.0); MEAN CORPUSCULAR HGB CONC 34.2 g/dL (33.0-36.5); MEAN CORPUSCULAR VOLUME 95.3 FL (78-98); MEAN PLATELET VOLUME 9.4 FL (7.4-10.4); MONOCYTES # (AUTO) 1.1 X10'3 (0-0.9); NEUTROPHILS # (AUTO) 5.8 X10'3 (1.8-7.7); NEUTROPHILS % (AUTO) 67.1 % (42-75); PLATELET COUNT 227 X10'3 (140-440); RED BLOOD COUNT 4.79 X10'6 (4.70-6.10); RED CELL DISTRIBUTION WIDTH 13.3 % (11.5-14.5); WHITE BLOOD COUNT 8.7 X10'3 (4.5-11.0)
[2024-08-30 07:51] LABS: ALBUMIN 3.2 G/DL (3.4-5.0); ANION GAP 8 (8-16); BLOOD UREA NITROGEN 35 MG/DL (7-18); BUN/CREATININE RATIO 20.7 (10.0-20.0); CALCIUM 9.8 MG/DL (8.5-10.1); CHLORIDE 98 MMOL/L (99-107); CREATININE 1.69 MG/DL (0.60-1.10); GLUCOSE 113 MG/DL (70-104); POTASSIUM 3.6 MMOL/L (3.5-5.1); SODIUM 136 MMOL/L (135-145); TOTAL CARBON DIOXIDE 30.4 MMOL/L (24-32); eCRCL 56 ML/MIN; eGFR 43 ML/MIN
[2024-08-30] MEDS: spironolactone 25 MG tablet PO SCH (08:04)
[2024-08-30] MEDS: lisinopril 10 MG tablet PO SCH (08:04)
[2024-08-30] MEDS: nicotine 14mg patch - 24hr TD SCH (08:05)
[2024-08-30] MEDS: EMPAGLIFLOZIN 10 MG TABLET PO SCH (08:05)
[2024-08-31 02:00] VITALS: BP 129/86; PULSE 80; RESP 20; TEMP 98.3; O2SAT 97
[2024-08-31 06:23] LABS: BASOPHILS # (AUTO) 0.1 X10'3 (0-0.2); BASOPHILS % (AUTO) 1.2 % (0-1); EOSINOPHILS # (AUTO) 0.6 X10'3 (0-0.9); EOSINOPHILS % (AUTO) 6.2 % (0-6); HEMATOCRIT 49.7 % (42.0-52.0); LYMPHOCYTES # (AUTO) 1.3 X10'3 (1.1-4.8); LYMPHOCYTES % (AUTO) 14.1 % (21-51); MEAN CORPUSCULAR HEMOGLOBIN 32.8 PG (27.0-31.0); MEAN CORPUSCULAR HGB CONC 34.2 g/dL (33.0-36.5); MEAN CORPUSCULAR VOLUME 95.8 FL (78-98); MEAN PLATELET VOLUME 9.3 FL (7.4-10.4); MONOCYTES # (AUTO) 1.1 X10'3 (0-0.9); MONOCYTES % (AUTO) 12.6 % (2-12); NEUTROPHILS # (AUTO) 5.9 X10'3 (1.8-7.7); NEUTROPHILS % (AUTO) 65.9 % (42-75); PLATELET COUNT 257 X10'3 (140-440); RED BLOOD COUNT 5.19 X10'6 (4.70-6.10); RED CELL DISTRIBUTION WIDTH 13.6 % (11.5-14.5); WHITE BLOOD COUNT 8.9 X10'3 (4.5-11.0)
[2024-08-31 06:45] LABS: ALBUMIN 3.4 G/DL (3.4-5.0); ANION GAP 10 (8-16); BLOOD UREA NITROGEN 46 MG/DL (7-18); BUN/CREATININE RATIO 21.9 (10.0-20.0); CALCIUM 9.9 MG/DL (8.5-10.1); CHLORIDE 98 MMOL/L (99-107); GLUCOSE 119 MG/DL (70-104); SODIUM 137 MMOL/L (135-145); TOTAL CARBON DIOXIDE 28.6 MMOL/L (24-32); eCRCL 45 ML/MIN; eGFR 34 ML/MIN
[2024-08-31 08:00] VITALS: RESP 16; O2SAT 100
[2024-08-31 10:15] VITALS: BP_SYST 119
[2024-08-31] MEDS ORDERED: CARV3.1232 PO (10:47)
[2024-08-31] MEDS ORDERED: ATOR40TA72 PO (10:47)
[2024-08-31] MEDS ORDERED: LISI10TA27 PO (10:47)
[2024-08-31] MEDS ORDERED: SPIR25TA PO (10:47)
[2024-08-31] MEDS ORDERED: FURO40TA4 PO (10:47)
[2024-08-31] MEDS ORDERED: EMPA10TA PO (10:47)
[2024-08-31] MEDS ORDERED: APIX5TAB3 PO (10:47)
== END 2024-08-31 12:20 | disposition home or self-care (01) | DRG 194 ==
LOC: ER 09:10 → ED HOLD 12:25 → PCU 3S 16:00
PROVIDERS: ADMIT Internal Medicine; ATTEND Internal Medicine
DX: I13.0 Hypertensive heart and chronic kidney disease with heart failure and stage 1 through stage 4 chronic kidney disease, or unspecified chronic kidney disease (principal); N17.0 Acute kidney failure with tubular necrosis; Z79.01 Long term (current) use of anticoagulants; F17.210 Nicotine dependence, cigarettes, uncomplicated; I25.10 Atherosclerotic heart disease of native coronary artery without angina pectoris; N18.9 Chronic kidney disease, unspecified; I48.0 Paroxysmal atrial fibrillation; I50.43 Acute on chronic combined systolic (congestive) and diastolic (congestive) heart failure; Z95.0 Presence of cardiac pacemaker; Z95.1 Presence of aortocoronary bypass graft; Z95.2 Presence of prosthetic heart valve; Z79.899 Other long term (current) drug therapy
CPT/HCPCS: 36415; 71045; 80048; 80053; 83880; 84484; 85025; 87081; 93005; 93306; 96374; 99285; G0378; J1940